=== PATIENT | male | born 1990 | race Two or more races ===

== ENCOUNTER → 2019-05-26 | Emergency (ER) | payer MEDICAID ==
[~2019-05-26] VITALS: Ht 172.7 cm; Wt 71.2 kg
[~2019-05-26] MED LIST: ACETAMINOPHEN-1 EAC1 ORAL; AMOXICILLIN500 MG ORAL; IBU800 MG PO; Ketorolac 30mg Inj IM ONE; Tylenol #3 tab (300mg/30mg) ORAL ONE
[2019-05-26 14:35] VITALS: BP 103/55
--- NOTE | 2019-05-26 14:35 | NUR ---
ED Nurse Note: Patient came to ER with a c/o pain and swelling on the right side of face x 4 days. Patient is aaox4 , on room air with stable vital signs.
--- NOTE | 2019-05-26 15:14 | Emergency Room Report ---
History of Present Illness General Chief Complaint: Pain Source: Patient Present Illness HPI 28-year-old male with no significant past medical history here complaining of 2 days of right lower molar tooth pain and jaw pain. Rating a 10 out of 10. Reports that part of his tooth is broken. Has not been able to reach a dentist yet as it has been the weekend. Also complains of a 10 out of 10 sore throat with some congestion. Denies fever and chills at this time. Has been taking Motrin with minimal relief. Has full range of motion of facial nerve, denies any numbness or tingling bedside. Denies earache. Denies headache and dizziness at this time. Denies vertigo, hearing loss. Denies all other associated symptoms. Allergies: Coded Allergies: No Known Allergies (Unverified , 05/26/19) Patient History Past Medical History: see triage record Past Surgical History: none Pertinent Family History: none Immunizations: UTD Reviewed Nursing Documentation: PMH: Agreed; PSxH: Agreed Nursing Documentation-PMH Past Medical History: No History, Except For Hx Cardiac Problems: No Hx Hypertension: No Hx Pacemaker: No Hx Asthma: No Hx COPD: No Hx Diabetes: No Hx Cancer: No Hx Gastrointestinal Problems: No Hx Dialysis: No History Of Psychiatric Problem: Yes - Anxiety Hx Neurological Problems: No Hx Cerebrovascular Accident: No Hx Seizures: No Review of Systems All Other Systems: negative except mentioned in HPI Physical Exam Vital Signs Date Time Temp Pulse Resp B/P (MAP) Pulse Ox O2 Delivery O2 Flow Rate FiO2 05/26/19 14:28 97.7 76 18 103/55 (71) 97 Room Air Sp02 EP Interpretation: reviewed, normal General Appearance: no apparent distress, alert, GCS 15, non-toxic Head: normocephalic, atraumatic Eyes: bilateral eye normal inspection, bilateral eye PERRL ENT: hearing grossly normal, EOM grossly intact, no angioedema, normal voice, nasal congestion, tonsillar swelling, tonsillar exudate, other - Infection right lower molar with minimal swelling of right mandible Neck: full range of motion, supple, thyroid normal, no meningismus, supple/symm /no masses Respiratory: chest non-tender, lungs clear, normal breath sounds, no rhonchi, no retraction, no wheezing, speaking full sentences Cardiovascular #1: regular rate, rhythm, no edema, no murmur Gastrointestinal: normal bowel sounds, non tender, soft, non-distended, no guarding, no rebound Genitourinary: no CVA tenderness Musculoskeletal: back normal, normal range of motion, gait/station normal, non- tender Neurologic: alert, motor strength/tone normal, oriented x3, sensory intact, responsive, speech normal Psychiatric: judgement/insight normal, memory normal, mood/affect normal, no suicidal/homicidal ideation Skin: no rash Lymphatic: no adenopathy Medical Decision Making PA Attestation All my diagnosis and treatment plans were reviewed ad discussed with my supervising physician Diagnostic Impression: Primary Impression: Tooth infection Additional Impression: Strep pharyngitis ER Course 28-year-old male with no significant past medical history here complaining of 2 days of right lower molar tooth pain and jaw pain. Rating a 10 out of 10. Reports that part of his tooth is broken. Has not been able to reach a dentist yet as it has been the weekend. Also complains of a 10 out of 10 sore throat with some congestion. Denies fever and chills at this time. Has been taking Motrin with minimal relief. Has full range of motion of facial nerve, denies any numbness or tingling bedside. Denies earache. Denies headache and dizziness at this time. Denies vertigo, hearing loss. Denies all other associated symptoms. Ddx considered but are not limited to: strep pharyngitis, URI, tonsillitis, peritonsillar abscess, influenza, tooth infection, tooth abscess, strep pharyngitis Vital signs: are WNL, pt. is afebrile H&PE are most consistent with: Tooth infection, strep pharyngitis ORDERS: Amoxicillin, ibuprofen, very few numbers of Tylenol 3 ED INTERVENTIONS: Toradol, Tylenol 3 DISCHARGE: At this time pt. is stable for d/c to home. Will provide printed patient care instructions, and any necessary prescriptions. Care plan and follow up instructions have been discussed with the patient prior to discharge. I gave patient a list of dental offices that he can go to also is aware that no more controlled substance can be written on the patient is seen by the dentist. Cures was done on patient and nothing significant was found. Patient to follow-up with dentist or primary care provider, if worsening symptoms return to the emergency room. At this time very low suspicion for abscess formation. No imaging needed at this time as patient has a broken and partly infected tooth. No signs of abscess noted. Last Vital Signs Date Time Temp Pulse Resp B/P (MAP) Pulse Ox O2 Delivery O2 Flow Rate FiO2 05/26/19 14:28 97.7 76 18 103/55 (71) 97 Room Air Disposition: HOME, SELF-CARE Condition: Stable Scripts Acetaminophen With Codeine (T#3) (TYLENOL #3 TAB*) Y Tab 1 TAB ORAL Q8HR PRN for For Pain for 3 Days, #10 TAB Prov: Madonna Porras 05/26/19 Ibuprofen (Ibu) 800 Mg Tablet 800 MG PO TID, #30 TAB Prov: Madonna Porras 05/26/19 Amoxicillin* (AMOXIL*) 500 Mg Capsule 500 MG ORAL EVERY 8 HOURS for 10 Days, #30 CAP Prov: Madonna Porras 05/26/19 Patient Instructions: Dental Abscess, [id number], Strep Throat Additional Instructions: Follow-up with your primary care provider, see a dentist regarding her tooth infection. If worsening symptoms return to the emergency room. Madonna Porras May 26, 2019 15:14
[2019-05-26 15:39] VITALS: BP 103/55
--- NOTE | 2019-05-26 15:39 | NUR ---
ER DISCHARGE NOTE: Patient is cleared to be discharged per BHARGAVI Peacock, pt is aox4, on room air, with stable vital signs. pt was given dc and prescription instructions, pt was able to verbalize understanding, pt id band removed without complications. pt is able to ambulate with steady gait. pt took all belongings.
== END | disposition home or self-care (01) ==
LOC: EMR 15:10
DX: K04.7 Periapical abscess without sinus (principal); J02.0 Streptococcal pharyngitis; F41.9 Anxiety disorder, unspecified
CPT/HCPCS: 96372; J1885; Z7502; 99283